=== PATIENT | female | born 1960 | race Caucasian/White ===

== ENCOUNTER 2017-07-13 06:59 | Day surgery (SDC) | payer BC ==
[2017-07-11 14:42] VITALS: BMI 34.7
[2017-07-13] MEDS ORDERED: BUPIVACAINE HCL/PF 2.5 MG/ML - 30 ML VIAL IJ ONE (07:07)
[2017-07-13] MEDS ORDERED: EPINEPHrine 1:1,000 1 MG/1 ML - 30ML VIAL (INJECTION) ONE (07:33)
[2017-07-13] MEDS ORDERED: MIDAZOLAM HCL 2 MG/2 ML SINGLE DOSE VIAL ONE (07:34)
[2017-07-13] MEDS ORDERED: PROPOFOL 20 ML ONE (07:58)
[2017-07-13] MEDS ORDERED: LIDOCAINE HCL/PF 2% SDV 5ML VIAL ONE (07:58)
[2017-07-13] MEDS ORDERED: DEXAMETHASONE SOD PHOSPHATE 4 MG/1 ML VIAL ONE ×2 (08:27→09:42)
[2017-07-13] MEDS ORDERED: ceFAZolin SODIUM 1 GM VIAL ONE (08:33)
[2017-07-13] MEDS ORDERED: methylPREDNISolone ACET (DEPO) 40 MG/1 ML VIAL ONE (09:06)
[2017-07-13] MEDS ORDERED: DESFLURANE GAS 240 ML BOTTLE IH ONE ×2 (09:06→09:09)
[2017-07-13] MEDS ORDERED: oxyCODONE HCL 5 MG TABLET PO PRN (09:35)
[2017-07-13] MEDS ORDERED: ONDANSETRON 4 MG/2 ML VIAL IVPUSH PRN (09:35)
[2017-07-13] MEDS ORDERED: BUPIVACAINE HCL/PF 0.25% (2.5MG/ML) 10 ML VIAL IJ ONE (09:44)
[2017-07-13] MEDS ORDERED: methylPREDNISolone ACET (DEPO) 40 MG/1 ML VIAL IM ONE (09:44)
[2017-07-13] MEDS ORDERED: LACTATED RINGERS SOLUTION 1,000 ML IV SCH (09:45)
--- NOTE | 2017-07-13 10:00 | OP ---
Operative Note - Note: Operative Date: 07/13/17 Pre-Operative Diagnosis: Right knee medial meniscus derangement. Right knee chondromalacia Operation: Right knee: 1. Surgical arthroscopy. 2. Partial medial meniscectomy. 3. Chondroplasty medial femoral condyle. 4. Chondroplasty patellofemoral joint. Tourniquet Pressure: 250mmHg. Tourniquet Time: 46 min. Arthroscopy equipment failure intra-op Findings: Right knee: Degenerative medial meniscus tear Chondromalacia (Grade IV) medial femoral condyle with multiple loose flaps Chondromalacia (Grade II-III) patellofemoral joint Post-Operative Diagnosis: Same as Pre-op Surgeon: Filiberto Perry Anesthesia: General Fluid Volume Replaced (mls): 1,000 Operative Report Dictated: Yes
[2017-07-13 11:01] VITALS: TEMP 97.6
[2017-07-13] MEDS ORDERED: oxyCODONE HCL 5 MG TABLET ONE (11:04)
[2017-07-13 13:18] VITALS: BP 134/65; PULSE 63
--- NOTE | 2017-07-16 14:57 | PATH ---
Surgical Pathology Report Patient Name: GUDELIA MORGAN [facility]. Rec. #: [id number] /Age/Gender: 1960 (Age: 57) / F Account: [id number] Location: [facility] Taken: 07/13/2017 Received: 07/13/2017 Reported: 07/16/2017 Physicians: Filiberto Perry M.D. Specimen(s) Received RIGHT KNEE SHAVINGS Clinical History Internal derangement of right knee Final Diagnosis KNEE, RIGHT, ARTHROSCOPIC SHAVINGS: CARTILAGE AND FIBROSYNOVIAL TISSUE. Electronically Signed Molly Sams M.D. Gross Description Received in formalin labeled "right knee shavings," is a 1.5 x 1.0 x 0.1 cm aggregate of yarbrough-yellow soft tissue fragments. The formalin is filtered and the specimen is entirely submitted in one cassette. /07/13/201707/13/2017
--- NOTE | 2017-07-18 09:35 | OP ---
DATE OF OPERATION: 07/13/2017 SURGEON: Filiberto Perry MD EMS DIRECTOR: None. PREOPERATIVE DIAGNOSES: 1. Right knee medial meniscus derangement. 2. Right knee chondromalacia. POSTOPERATIVE DIAGNOSES: 1. Degenerative tear, medial meniscus, right knee. 2. Chondromalacia, right knee medial femoral condyle, with multiple loose flaps. 3. Chondromalacia, right knee, patellofemoral joint. SURGICAL PROCEDURE: 1. Surgical arthroscopy, right knee. 2. Partial medial meniscectomy. 3. Chondroplasty, medial femoral condyle. 4. Chondroplasty, patellofemoral joint. TOURNIQUET PRESSURE: 250 mmHg TOURNIQUET TIME: 46 minutes ANESTHESIA: General. POSITION: Supine. INCISION: Standard anteromedial and anterolateral arthroscopy portals. ESTIMATED BLOOD LOSS: Minimal. INTRAVENOUS FLUIDS: Crystalloid 1 L. SPECIMENS: None. DRAINS: None. COMPLICATIONS: Intraoperative arthroscopy equipment failure. URINE OUTPUT: None. BACTERIOLOGY: None. TRANSFUSIONS: None. CLOSURE: 3-0 nylon. INDICATIONS: Patient is a 57-year-old female well known to me who was indicated for surgical arthroscopy of the right knee with possible debridement of cartilage as well as the menisci in order to promote improved motion and mobilization and to prevent the complications associated with a sedentary lifestyle. The patient was identified in the holding area by her armband. A long discussion was held with the patient in the presence of her family regarding the risks, benefits and alternatives of the above-named procedure. Risks include, but are not limited to, pain, bleeding, infection, damage to surrounding structures (including nerves, blood vessels, skin, ligaments, tendons and bone), wound complications, the need for further surgery, blood clots, myocardial infarction, pulmonary embolism, anesthesia complications , compartment syndrome, limb loss, limp, loss of function and . Benefits are as mentioned above. All questions were answered. The patient and her family understood and agreed to the procedure. Informed consent was obtained, witnessed and verified. The patient's correct operative limb - that is the right lower extremity - was marked. The patient was taken to the operating room after being seen by the Anesthesia and Nursing staff. PROCEDURE: The patient was brought to the operating room, placed on the OR table and secured with a safety strap. Consent and the operative site were again verified with the patient and Nursing and Anesthesia staff. Anesthesia was then administered without complications, including IV antibiotics. A timeout was done, led by , the attending surgeon. The patient was positioned with all bony prominences well padded. A tourniquet was placed proximally on the right thigh and set to 250 mmHg. The leg was then secured in a leg kendall. The operative site was then prepped and draped in standard sterile fashion. A timeout was done. The limb was exsanguinated using an Esmarch, the tourniquet was inflated, and the case begun. A standard anterolateral arthroscopy portal was made into the right knee. Upon introduction of the arthroscope into the suprapatellar pouch via this portal, the knee was insufflated using normal saline solution containing epinephrine for hemostasis. Next, the patellofemoral joint was visualized and grade 2-3 chondromalacia was noted on both sides of the joint. The arthroscope was then delivered into the middle of the knee and the knee was gently flexed, allowing full visualization of the trochlear groove en route to the trochlear notch. There was no significant distal trochlear sulcus chondromalacia. Next, the arthroscope was delivered via the medial gutter into the medial compartment of the knee. A gentle valgus stress was applied to the knee so as to allow ease of entry of the arthroscope into the knee. There were no loose bodies in the medial gutter. At this point, grade 4 chondromalacia was noted of the medial femoral condyle to multiple large, loose chondral flaps. Next, a standard anteromedial arthroscopy portal was made into the right knee. After the introduction of a trocar and then a probe into the space, a tear of the posterior horn of the medial meniscus was demonstrated. Furthermore, the instability of the chondral flaps in the medial femoral condyle was demonstrated with the probe. Pictures were taken, and the tip of the probe was used to demonstrate the depth and thickness of the deficient cartilage lining on the femur. Next, a standard 3.5- mm shaver was introduced into the medial compartment. Using the oscillating feature, the shaver was used to debride the meniscus tear back to a stable peripheral rim. The shaver was also used to debride the loose chondral flaps overlying the medial femoral condyle. Next, the arthroscope was taken to the middle of the knee where the ACL was visualized to be intact. After this, the arthroscope was delivered into the lateral compartment of the knee where the cartilage of the lateral femoral condyle as well as tibial plateau was found to be intact, as was the entirety of the lateral meniscus. Next, the arthroscope was delivered via the lateral gutter of the knee back into the suprapatellar pouch. Again, no loose bodies were seen in the lateral gutter of the knee. Next, the shaver was used to perform a chondroplasty of the patellofemoral joint. This was put on a very gentle debridement of large, loose fibrillations overlying the patella margins and also included a debridement of a loose chondral flap in the trochlear sulcus of the femur. Once this was done, the knee was thoroughly irrigated and lavaged using another 3 L of normal saline solution containing epinephrine. Next, hemostasis was assured. The inflow suction was clamped. The outflow suction allowed us to fully aspirate the knee of most fluid content. Next, the arthroscope was removed from the knee and the wounds were closed primarily using 3-0 nylon suture. Prior to suture closure, an injection consisting of 4 mL of 0.25% Marcaine and 1 mL of Depo-Medrol was injected into the medial compartment of the right knee. The earl-incisional soft tissues were infiltrated with 0.25% Marcaine using an 18-gauge needle. Next, a sterile compressive dressing was applied and the tourniquet was released at a final time of 46 minutes. The sterile compressive dressing which was applied was then overwrapped with Leonard bandages. The sponge and needle counts were correct at the end of the case, and I, the attending surgeon, was present and scrubbed throughout the entire case. The patient was then extubated by the Anesthesia staff without incident or complications and transferred to the recovery room in stable condition, having tolerated the procedure well. MD LIEN Johnson/[id number]
== END 2017-07-13 13:00 | disposition home or self-care (01) ==
LOC: FASU 06:59
PROVIDERS: ATTEND Orthopaedic Surgery Adult Reconstructive Orthopaedic Surgery
PROC: 0SBC4ZZ Excision of Right Knee Joint, Percutaneous Endoscopic Approach (ICD-10-PCS; principal; 2017-07-13 09:00)
DX: S83.211A Bucket-handle tear of medial meniscus, current injury, right knee, initial encounter (principal); M94.261 Chondromalacia, right knee; X58.XXXA Exposure to other specified factors, initial encounter; Y93.9 Activity, unspecified; Y92.89 Other specified places as the place of occurrence of the external cause
CPT/HCPCS: 88304-TC; 94760